=== PATIENT | male | born 1950 | race Hispanic/Latino ===

== ENCOUNTER 2017-05-26 19:36 | Observation (INO) | payer BC ==
[2017-05-26 19:37] VITALS: BMI 23.3
[2017-05-26 19:47] VITALS: RESP 20
--- NOTE | 2017-05-26 20:02 | C.PDOC ---
History Of Present Illness 66 y/o male with a past medical history of hypertension presents to the ER complaining of left-sided chest heaviness, onset while lifting packages at work today. Pain lasted around 20-30 min and then resolved. Patient reports the pain recurred this evening, prompting him to come in for further evaluation. Took aspirin prior to arrival. Patient denies any prior cardiac catheterization or stress test. States pain is nearly resolved at this time. Otherwise, denies any SOB, dizziness, headache, nausea, or vomiting. Time Seen by Provider: 05/26/17 19:48 Chief Complaint (Nursing): Chest Pain History Per: Patient History/Exam Limitations: no limitations Onset/Duration Of Symptoms: Intermittent Episodes Current Symptoms Are (Timing): Better Quality: Pressure Past Medical History Reviewed: Historical Data, Nursing Documentation, Vital Signs Vital Signs: Last Vital Signs Temp 97.9 F 05/26/17 19:44 Pulse 80 05/26/17 19:44 Resp 20 05/26/17 19:44 BP 132/81 05/26/17 19:44 Pulse Ox 94 L 05/26/17 20:13 - Medical History PMH: HTN Surgical History: Denies: Pacemaker - [facility] Procedures CLOSED ENDOSCOPIC BIOPSY OF LARGE INTESTINE (11/08/14) Family History: States: No Known Family Hx - Social History Hx Alcohol Use: Yes (BEERS-3 TO 4 DAILY) Hx Substance Use: No Review Of Systems Except As Marked, All Systems Reviewed And Found Negative. Constitutional: Negative for: Chills, Sweats, Weakness Cardiovascular: Positive for: Chest Pain (left-sided, pressure) Respiratory: Negative for: Shortness of Breath Gastrointestinal: Negative for: Nausea, Vomiting Neurological: Negative for: Headache, Dizziness Physical Exam - Physical Exam Appears: Non-toxic, No Acute Distress Skin: Normal Color, Warm, Dry, No Diaphoretic, No Pale Head: Atraumatic, Normacephalic Eye(s): bilateral: Normal Inspection, PERRL, EOMI Nose: Normal Oral Mucosa: Moist Neck: Normal ROM, Supple Chest: Symmetrical, No Tenderness Cardiovascular: Rhythm Regular, No Murmur Respiratory: Normal Breath Sounds, No Accessory Muscle Use Gastrointestinal/Abdominal: Soft, No Tenderness, No Distention Extremity: Bilateral: Atraumatic, Normal Color And Temperature, Normal ROM Neurological/Psych: Oriented x3, Normal Speech ED Course And Treatment - Laboratory Results Result Diagrams: 05/26/17 20:13 05/26/17 20:13 ECG: Interpreted By Me, Viewed By Me ECG Rhythm: Sinus Rhythm (at 75 bpm), Nonspecific Changes (ST) O2 Sat by Pulse Oximetry: 94 (RA) Pulse Ox Interpretation: Abnormal Medical Decision Making Medical Decision Making: cp ro acs- labs imaging pending asa lpta today Time: 19:52 Initial Plan: EKG CMP Troponin I CBC PTT Prothrombin time Chest x-ray 900: trop neg x 1, pt will need serial enzymes as onset <[address] salinas for obs Disposition - Disposition Disposition: HOSPITALIZED Disposition Time: 20:58 Condition: STABLE Forms: [employer] ([place]) - Clinical Impression Clinical Impression: Chest pain - Scribe Statement The provider has reviewed the documentation as recorded by the Scribe (Jocelin Carlos) Provider Attestation: All medical record entries made by the Scribe were at my direction and personally dictated by me. I have reviewed the chart and agree that the record accurately reflects my personal performance of the history, physical exam, medical decision making, and the department course for this patient. I have also personally directed, reviewed, and agree with the discharge instructions and disposition. Decision To Admit - Pt Status Changed To: Hospital Disposition Of: Observation - . Bed Request Type: Telemetry Admitting Physician: Best Salinas Patient Diagnosis: Chest pain
[2017-05-26 20:16] LABS: BASO % 0.5 % (0.0-2.0); EOS # 0.2 K/uL (0.0-0.7); EOS % 2.8 % (0.0-4.0); HEMOGLOBIN 14.1 g/dL (12.0-18.0); LYMPH # 2.6 K/uL (1.0-4.3); LYMPH % 30.5 % (20.0-40.0); MEAN CELL VOLUME 89.9 fL (80.0-94.0); MEAN CORPUSCULAR HEMOGLOBIN 30.6 pg (27.0-31.0); MEAN PLATELET VOLUME 7.3 fL (7.2-11.7); MONO # 0.7 K/uL (0.0-0.8); MONO % 8.7 % (0.0-10.0); NEUT # 4.9 K/uL (1.8-7.0); NEUT % 57.5 % (50.0-75.0); NRBC % 0.1 % (0.0-2.0); RBC 4.6 Mil/uL (4.40-5.90); WHITE BLOOD COUNT 8.4 K/uL (4.8-10.8)
[2017-05-26 20:25] LABS: PROTHROMBIN TIME 11.7 SECONDS (9.7-12.2)
[2017-05-26 20:32] LABS: ALB/GLOB RATIO 1.1 (1.0-2.1); ALBUMIN 3.9 g/dL (3.5-5.0); ALT/SGPT 44 U/L (21-72); AST/SGOT 28 U/L (17-59); BLOOD UREA NITROGEN 35 mg/dL (9-20); GFR AFRICAN-AMERICAN > 60; GFR NON-AFRICAN AMERICAN 56
--- NOTE | 2017-05-26 22:59 | CP.PCM.HP ---
Past Patient History - Past Social History Smoking Status: Never Smoked - CARDIAC Hx Hypertension: Yes Hx Pacemaker: No - NEUROLOGICAL Hx Paralysis: No - HEMATOLOGICAL/ONCOLOGICAL Hx Blood Transfusions: No Hx Blood Transfusion Reaction: No - MUSCULOSKELETAL/RHEUMATOLOGICAL Hx Musculoskeletal Disorders: No - PSYCHIATRIC Hx Substance Use: No - SURGICAL HISTORY Hx Surgeries: Yes - ANESTHESIA Hx Anesthesia Reactions: No Hx Malignant Hyperthermia: No Meds Allergies/Adverse Reactions: Allergies Allergy/AdvReac Type Severity Reaction Status Date / Time No Known Allergies Allergy Verified 11/05/14 13:40 Results - Vital Signs Recent Vital Signs: Last Vital Signs Temp 97.9 F 05/26/17 19:44 Pulse 80 05/26/17 19:44 Resp 20 05/26/17 19:44 BP 132/81 05/26/17 19:44 Pulse Ox 94 L 05/26/17 20:58 - Labs Result Diagrams: 05/26/17 20:13 05/26/17 20:13 Labs: Laboratory Results - last 24 hr 05/26/17 05/26/17 05/26/17 20:13 20:13 20:13 WBC 8.4 RBC 4.60 Hgb 14.1 Hct 41.4 MCV 89.9 MCH 30.6 MCHC 34.0 RDW 13.0 Plt Count 221 MPV 7.3 Neut % (Auto) 57.5 Lymph % (Auto) 30.5 [place] % (Auto) 8.7 Eos % (Auto) 2.8 Baso % (Auto) 0.5 Neut # (Auto) 4.9 Lymph # (Auto) 2.6 [place] # (Auto) 0.7 Eos # (Auto) 0.2 Baso # (Auto) 0.0 PT 11.7 INR 1.0 APTT 30 Sodium 142 Potassium 3.8 Chloride 102 Carbon Dioxide 27 Anion Gap 18 BUN 35 H Creatinine 1.3 Est GFR ( Amer) > 60 Est GFR (Non-Af Amer) 56 Random Glucose 118 H Calcium 9.0 Total Bilirubin 0.3 AST 28 ALT 44 Alkaline Phosphatase 61 Troponin I < 0.0120 Total Protein 7.5 Albumin 3.9 Globulin 3.6 Albumin/Globulin Ratio 1.1
[2017-05-27 04:44] LABS: CK-MB 1.33 ng/mL (0.0-3.38)
--- NOTE | 2017-05-27 08:18 | RAD ---
Chest x-ray single frontal view History: Chest pain. Comparison: None available. Findings: Mild venous congestion. Blunted left costophrenic angle which may represent trace effusion and/or pleural thickening. Increased markings at the left lung base may represent atelectasis and or infiltrate. Heart size within normal limits. Degenerative changes in the spine with paravertebral osteophytes. Impression: Mild venous congestion. Blunted left costophrenic angle which may represent trace effusion and/or pleural thickening. Correlation with chest CT may be helpful if clinically indicated. Increased markings at the left lung base may represent atelectasis and or infiltrate.
[2017-05-27] MEDS ORDERED: Pantoprazole 40 mg EC Tab PO SCH (10:00)
[2017-05-27] MEDS ORDERED: Enoxaparin 40 mg Syringe SC SCH (10:00)
[2017-05-27] MEDS ORDERED: VALSARTAN PO SCH (10:00)
--- NOTE | 2017-05-27 12:36 | CARD ---
APPROVED REPORT EKG Measurement Heart [id number] <Conclusion> Sinus rhythm with premature atrial complexes Cannot rule out Anterior infarct, age undetermined Abnormal ECG
[2017-05-27 12:47] LABS: CK-MB 1.47 ng/mL (0.0-3.38)
--- NOTE | 2017-05-27 15:43 | CP.PCM.PN ---
Subjective - Date & Time of Evaluation Date of Evaluation: 05/27/17 Time of Evaluation: 10:30 - Subjective Subjective: clinically same Objective - Vital Signs/Intake and Output Vital Signs (last 24 hours): Temp Pulse Resp BP Pulse Ox 97.3 F L 66 20 132/82 98 05/27/17 08:59 05/27/17 08:59 05/27/17 08:59 05/27/17 11:28 05/27/17 08:59 Intake and Output: 05/27/17 05/27/17 06:59 18:59 Intake Total 300 Balance 300 - Medications Medications: Current Medications Aspirin (Aspirin) 325 mg PO DAILY REPLACED BY [facility] Last Admin: 05/27/17 09:56 Dose: 325 mg Clonazepam (Klonopin) 1 mg PO Q8 PRN Clopidogrel Bisulfate (Plavix) 75 mg PO DAILY REPLACED BY [facility] Last Admin: 05/27/17 09:56 Dose: 75 mg Enoxaparin Sodium (Lovenox) 40 mg SC DAILY REPLACED BY [facility] Last Admin: 05/27/17 09:56 Dose: 40 mg Losartan Potassium (Cozaar) 100 mg PO DAILY REPLACED BY [facility] Last Admin: 05/27/17 09:56 Dose: 100 mg Pantoprazole Sodium (Protonix Ec Tab) 40 mg PO DAILY REPLACED BY [facility] Last Admin: 05/27/17 09:56 Dose: 40 mg Zolpidem Tartrate (Ambien) 10 mg PO HS PRN PRN Reason: Anxiety - Labs Labs: 05/26/17 20:13 05/26/17 20:13 PT 11.7 SECONDS (9.7-12.2) 05/26/17 20:13 INR 1.0 05/26/17 20:13 APTT 30 SECONDS (21-34) 05/26/17 20:13 - Constitutional Appears: Well - Head Exam Head Exam: ATRAUMATIC, NORMAL INSPECTION, NORMOCEPHALIC - Eye Exam Eye Exam: EOMI, Normal appearance, PERRL Pupil Exam: NORMAL ACCOMODATION, PERRL - ENT Exam ENT Exam: Mucous Membranes Moist, Normal Exam - Neck Exam Neck Exam: Full ROM, Normal Inspection. absent: Lymphadenopathy - Respiratory Exam Respiratory Exam: Decreased Breath Sounds - Cardiovascular Exam Cardiovascular Exam: REGULAR RHYTHM, +S1, +S2 - GI/Abdominal Exam GI & Abdominal Exam: Soft, Diminished Bowel Sounds - Rectal Exam Rectal Exam: Deferred
[2017-05-27 15:55] VITALS: BP 145/80; TEMP 97.8; O2SAT 95
[2017-05-27 17:00] VITALS: PULSE 62
== END 2017-05-27 19:45 | disposition left against medical advice (07) ==
LOC: C.ER 19:36 → C.9E 20:57 → C.5S 05-27 06:54
PROVIDERS: ADMIT Internal Medicine Nephrology; ATTEND Internal Medicine Nephrology
DX: R07.89 Other chest pain (principal); I10 Essential (primary) hypertension
CPT/HCPCS: 71045; 80053; 84484; 85025; 85610; 85730; 93005; G0378; J1650